=== PATIENT | male | born 1940 | race Caucasian/White ===

== ENCOUNTER → 2020-09-23 | Outpatient (CLI) | payer MEDICARE, BC ==
[2020-09-23 10:33] LABS: African American GFR (CKD) >90 (>60 ml/min/1.73 sqM); Blood Urea Nitrogen 24 mg/dL (9-20); Non-African American GFR(CKD) 83 (>60 ml/min/1.73 sqM)
--- NOTE | 2020-09-23 13:24 | CT ---
EXAMINATION TYPE: CT urogram wo/w con DATE OF EXAM: 09/23/2020 COMPARISON: None INDICATION: History of bladder cancer. DLP: 2887.8 mGycm, Automated exposure control for dose reduction was used. CONTRAST: 100 mL of Isovue 300. Study performed without Oral Contrast TECHNIQUE: Axial images were obtained from above the diaphragm to the pubic rami in the axial plane a t 5 mm thick sections. Reconstructed images are reviewed on the computer in the coronal plane. FINDINGS: Limited CT sections are obtained the lung bases. The lung bases are clear. Coronary artery calcific ation is present. CT ABDOMEN: Liver: Normal Spleen: Normal Pancreas: Atrophic Adrenal glands: Right adrenal gland is enlarged measuring 2.3 cm with a very low density structure co mpatible with a lipoma. Left adrenal gland is normal. Gallbladder: Surgically absent Kidneys: No masses are evident. No hydronephrosis is present. No cysts are present. There is a sup erior renal stone on the left without obstruction measuring 0.4 cm. 3-D reconstructed images performed separately on the computer by the technologist are reviewed. Renal calyces infundibula and renal pelvis appear normal. Ureters follow a normal caliber course and conto ur to the urinary bladder. Bladder has limited evaluation due to beam hardening artifact from bilater al hip prostheses. Aorta: Vascular calcification is within the aorta. Inferior vena cava: Normal. CT PELVIS: Loops of bowel within the abdomen and pelvis are normal. This study is without oral contrast limi ting bowel evaluation. Appendix: Normal as visualized. Urinary bladder: Urinary bladder is essentially nondiagnostic due to significant beam artifact from l ateral hip prostheses. Wall thickening cannot be evaluated. Large filling defects may not be visualiz ed Genitourinary structures: Prostate as visualized appears normal. Osseous structures: No suspicious lytic or sclerotic lesions. IMPRESSIONS: 1. Urinary bladder is nondiagnostic due to beam hardening artifact from bilateral hip prostheses. 2. Kidneys ureter and bladder as visualized appear without suspicious abnormality. A nonobstructing 0 .4 cm renal stone is noted on the left. 3. Lipoma within the right adrenal gland.
== END | disposition home or self-care (01) ==
LOC: RADCTMAIN 09:55
PROVIDERS: ATTEND Urology
DX: N20.0 Calculus of kidney (principal); D35.01 Benign neoplasm of right adrenal gland
CPT/HCPCS: 82565; 84520; 74178; 36415; 74400; Q9967

== ENCOUNTER → 2023-05-02 | Outpatient (CLI) | payer MEDICARE, BC ==
[2023-05-02 15:48] LABS: African American GFR (CKD) 70 (>60 ml/min/1.73 sqM); Blood Urea Nitrogen 38 mg/dL (9-20); Non-African American GFR(CKD) 60 (>60 ml/min/1.73 sqM)
--- NOTE | 2023-05-03 10:29 | CT ---
EXAMINATION TYPE: CT urogram wo/w con DATE OF EXAM: 05/02/2023 COMPARISON: 09/23/2020 HISTORY: f/u hx of bladded ca. CT DLP: 2909.50 mGycm CONTRAST: Performed and without and with IV Contrast, patient injected with 100ml mL of Isovue 300. CT Urography was performed with unenhanced followed by enhanced images of the kidneys, ureters and ur inary bladder. Delayed images were obtained. 3d reconstruction was performed at a separate work sta tion. FINDINGS: KIDNEYS/BLADDER: No hydronephrosis. No nephrolithiasis. No distinct renal mass. Bladder has limite d evaluation due to beam hardening artifact from bilateral hip prostheses. LUNG BASES-: No visible nodule. No infiltrate. LIVER/GB: Cholecystectomy clips are in place. No space occupying hepatic lesion. Biliary tree is of n ormal caliber. PANCREAS: No inflammation. No distinct mass. SPLEEN: No splenic enlargement. No lesion seen. ADRENALS: No nodule. No thickening. BOWEL: Normal appendix. Normal bowel caliber. No inflammation. GENITAL ORGANS: No gross abnormality. LYMPH NODES: No greater than 1cm abdominal or pelvic lymph nodes are appreciated. AORTA: No significant abnormality. OSSEOUS STRUCTURES: Degenerative changes noted. OTHER: No significant additional abnormality is seen. IMPRESSION: 1. Limited evaluation of the urinary bladder as noted above. No renal masses or hydronephrosis presen t.
== END | disposition home or self-care (01) ==
LOC: RADCTMAIN 14:57
PROVIDERS: ATTEND Urology
DX: C67.9 Malignant neoplasm of bladder, unspecified (principal); N13.30 Unspecified hydronephrosis
CPT/HCPCS: 82565; 84520; 74178; 36415; 74400; Q9967